=== PATIENT | female | born 1980 | race Caucasian/White ===

== ENCOUNTER 2018-05-10 20:35 | Emergency (ER) | payer BC ==
[~2018-05-10] VITALS: Ht 172.7 cm; Wt 65.8 kg
[2018-05-10] MEDS ORDERED: ACCUNEB SO1.25 MG/1 INH (20:59)
[2018-05-10] MEDS ORDERED: LIORESAL 10 MG10 MG PO (20:59)
[2018-05-10] MEDS ORDERED: APLENZIN PO (21:00)
[2018-05-10] MEDS ORDERED: BETAMETHASONE V15 GM TOP (21:00)
[2018-05-10] MEDS ORDERED: CLONAZEPAM 0.50.5 M1 PO (21:01)
[2018-05-10] MEDS ORDERED: BENZACLIN GEL 335 GM TOP (21:01)
[2018-05-10] MEDS ORDERED: NEURONTIN600 MG PO (21:02)
[2018-05-10] MEDS ORDERED: HYDROCORTISONE30 G9 TOP (21:02)
[2018-05-10] MEDS ORDERED: SYNTHROID25 MC1 PO (21:03)
[2018-05-10] MEDS ORDERED: HYDROXYZINE HCL25 M1 PO (21:03)
[2018-05-10] MEDS ORDERED: VYVANSE40 MG PO (21:04)
[2018-05-10] MEDS ORDERED: MAG-OXIDE400 MG PO (21:04)
[2018-05-10] MEDS ORDERED: CLARITIN10 M2 PO (21:04)
[2018-05-10] MEDS ORDERED: NEXPLANON68 MG (21:05)
[2018-05-10] MEDS ORDERED: ZOFRAN ODT4 MG PO (21:05)
[2018-05-10] MEDS ORDERED: PSYLLIUM FIBE0.52 GM PO (21:06)
[2018-05-10] MEDS ORDERED: RIZATRIPTAN10 M1 PO (21:07)
[2018-05-10] MEDS ORDERED: SENNA8.6 MG PO (21:07)
[2018-05-10] MEDS ORDERED: ZOMIG ZMT5 MG PO (21:10)
[2018-05-10] MEDS ORDERED: SYMBICORT80 MCG/4.1 INH (21:10)
[2018-05-10 21:22] LABS: URINE BILIRUBIN NEGATIVE (Negative); URINE BLOOD NEGATIVE (Negative); URINE CLARITY CLEAR; URINE COLOR YELLOW; URINE GLUCOSE-RANDOM* NEGATIVE (Negative); URINE KETONES NEGATIVE (Negative); URINE LEUKOCYTES-REFLEX NEGATIVE (Negative); URINE NITRITE-REFLEX NEGATIVE (Negative); URINE PROTEIN (DIPSTICK) NEGATIVE (Negative); URINE SPECIFIC GRAVITY >= 1.030 (1.005-1.035); URINE UROBILINOGEN 0.2 E.U./dl (0.2-1.0)
[2018-05-10 21:54] LABS: ABSOLUTE NEUTROPHILS 3.4 thou/uL (1.4-8.2); BASOPHILS 0.8 % (0.0-2.0); EOSINOPHILS 6.2 % (0.0-3.0); HEMATOCRIT 40.5 % (37.0-47.0); HEMOGLOBIN 13.6 gm/dL (12.0-15.0); LYMPHOCYTES 34.6 % (24.0-44.0); MCH 31.6 pg (26.0-34.0); MCHC 33.6 g/dL (28.0-37.0); MONOCYTES 8.4 % (1.0-8.0); PLATELET COUNT 280 thou/uL (150-400); RBC 4.31 mil/uL (4.20-5.00); RDW 12.5 % (10.5-14.5); WBC 6.8 thou/uL (4.0-11.0)
[2018-05-10 21:59] LABS: CALCIUM 9.1 mg/dL (8.5-10.1); CREATININE 0.8 mg/dL (0.6-1.0); POTASSIUM 3.7 mmol/L (3.5-5.1)
[2018-05-10 23:16] VITALS: BP 118/72
--- NOTE | 2018-05-11 08:16 | EKG ---
[address] [place] [address] ELECTROCARDIOGRAM REPORT Name: ALFONZO VENCESEY Room #: DEP Tremaine#: [id number] ������������������ Admission: 05/10/18 ������������������ Attend Phys: Discharge: 05/10/18 ������������������ Date of : 80 Report #: [id number] ����������������������������������������������������������������� [id number] THIS REPORT FOR: //name// [facility] ED Test Date: 2018-05-10 Test Time: 21:21:30 Pat Name: LINDA VENCES Department: Room: Gender: F Founder / Ceo: atbatha : 1980 Requested By: Vilma Soliman Order Number: [id number] MD: Dhiraj Dangelo Measurements Intervals [place] Rate: 73 P: 23 LA: 128 QRS: 84 QRSD: 92 T: 36 QT: 384 QTc: 424 Interpretive Statements Sinus rhythm No previous ECG available for comparison Electronically Signed On 05-11-2018 8:16:26 CDT by Dhiraj Dangelo [email or web address] ��������������������������������������������� <ELECTRONICALLY SIGNED> ���������������������������������������� By: Dhiraj Dangelo MD ��������������������������������������������� 05/11/18 0816 2121 20 Dhiraj Dangelo MD /SAIRA
== END 2018-05-10 23:19 | disposition home or self-care (01) ==
LOC: ER 20:35
PROVIDERS: Emergency Medicine
DX: R53.83 Other fatigue (principal); T43.295A Adverse effect of other antidepressants, initial encounter; F41.9 Anxiety disorder, unspecified; F32.9 Major depressive disorder, single episode, unspecified; K58.9 Irritable bowel syndrome, unspecified; Y92.89 Other specified places as the place of occurrence of the external cause

== ENCOUNTER 2020-07-25 18:49 | Emergency (ER) | payer BC, OTHER ==
[~2020-07-25] VITALS: Ht 172.7 cm; Wt 68.0 kg
[~2020-07-25 18:49] MED LIST: ACCUNEB SO1.25 MG/1 INH; APLENZIN PO; BENZACLIN GEL 335 GM TOP; BETAMETHASONE V15 GM TOP; CLARITIN10 M2 PO; CLONAZEPAM 0.50.5 M1 PO; HYDROCORTISONE30 G9 TOP; HYDROXYZINE HCL25 M1 PO; LIORESAL 10 MG10 MG PO; MAG-OXIDE400 MG PO; NEURONTIN600 MG PO; NEXPLANON68 MG; PSYLLIUM FIBE0.52 GM PO; RIZATRIPTAN10 M1 PO; SENNA8.6 MG PO; SYMBICORT80 MCG/4.1 INH; SYNTHROID25 MC1 PO; VYVANSE40 MG PO; ZOFRAN ODT4 MG PO; ZOMIG ZMT5 MG PO
[2020-07-25 20:02] LABS: URINE BILIRUBIN NEGATIVE (Negative); URINE BLOOD NEGATIVE (Negative); URINE CLARITY CLEAR; URINE GLUCOSE-RANDOM* NEGATIVE (Negative); URINE KETONES NEGATIVE (Negative); URINE LEUKOCYTES-REFLEX NEGATIVE (Negative); URINE NITRITE-REFLEX NEGATIVE (Negative); URINE PROTEIN (DIPSTICK) NEGATIVE (Negative); URINE SPECIFIC GRAVITY >= 1.030 (1.005-1.035); URINE UROBILINOGEN 0.2 E.U./dl (0.2-1.0)
[2020-07-25 20:03] LABS: URINE COLOR YELLOW
[2020-07-25 20:15] LABS: CALCIUM 8.8 mg/dL (8.5-10.1); CREATININE 0.8 mg/dL (0.6-1.0); POTASSIUM 4.1 mmol/L (3.5-5.1)
[2020-07-25 20:20] LABS: ALBUMIN 3.8 g/dL (3.4-5.0); TOTAL BILIRUBIN 0.4 mg/dL (0.2-1.0)
[2020-07-25 20:44] LABS: ABSOLUTE NEUTROPHILS 7.4 thou/uL (1.4-8.2); BASOPHILS 0.3 % (0.0-2.0); EOSINOPHILS 2.6 % (0.0-3.0); HEMATOCRIT 34.3 % (37.0-47.0); HEMOGLOBIN 11.5 gm/dL (12.0-15.0); LYMPHOCYTES 20.1 % (24.0-44.0); MCH 31.7 pg (26.0-34.0); MCHC 33.5 g/dL (28.0-37.0); MCV 94.7 fL (80.0-100.0); MONOCYTES 8.1 % (1.0-8.0); PLATELET COUNT 274 thou/uL (150-400); POLYS 68.9 % (36.0-66.0); RBC 3.62 mil/uL (4.20-5.00); WBC 10.8 thou/uL (4.0-11.0)
[2020-07-25 21:00] VITALS: BP 115/75
== END 2020-07-25 21:00 | disposition home or self-care (01) ==
LOC: ER 18:49
PROVIDERS: Physician Assistant
DX: S01.01XA Laceration without foreign body of scalp, initial encounter (principal); M79.641 Pain in right hand; Z79.899 Other long term (current) drug therapy; W18.39XA Other fall on same level, initial encounter; Y93.89 Activity, other specified; Y92.89 Other specified places as the place of occurrence of the external cause; Y99.8 Other external cause status

== ENCOUNTER 2020-08-12 09:55 | Emergency (ER) | payer BC, OTHER ==
[~2020-08-12] VITALS: Ht 172.7 cm; Wt 72.6 kg
[2020-08-12 09:58] VITALS: BP 115/74
== END 2020-08-12 10:23 | disposition home or self-care (01) ==
LOC: ER 09:55
DX: S01.01XD Laceration without foreign body of scalp, subsequent encounter (principal); X58.XXXD Exposure to other specified factors, subsequent encounter